=== PATIENT | male | born 1950 | race Two or more races ===

== ENCOUNTER 2017-07-03 17:11 | Inpatient (IN) | payer MEDICARE, OTHER ==
[~2017-07-03] VITALS: Ht 160 cm; Wt 93.0 kg
--- NOTE | 2017-07-03 18:55 | NUR ---
admission notes: received report from misael rn, pt just came direct admit from [facility], pt a/o x4, denies any chest pain or discomfort at this time, pt ambulatory, with right ac iv access, patent and flushing well, on hl. placed on tele, currently on sinus shannan 45, vs taken and recorded, oriented pt to unit policy and hourly rounding, inventory of belonging completed. safety precautions for fall initiated call light in reach, will continue to monitor
[2017-07-03] MEDS ORDERED: ASPI81TA2 PO (19:40)
[2017-07-03] MEDS ORDERED: ESOM40CA PO (19:40)
[2017-07-03] MEDS ORDERED: ATEN100T PO (19:40)
--- NOTE | 2017-07-03 19:45 | NUR ---
rn notes: arti [facility] inpatient services rn came to see the pt, did h&p, talked to the family of the pt regarding plan of care, orders noted and carried out
--- NOTE | 2017-07-03 19:50 | NUR ---
rn notes: informed motion picture projectionist lehr cutter about pt's lab from [place], plt 126, trop positive 0.14, cd imaging in the chart, ekg result, also made aware of pt's sinus shannan 45, per lehr cutter okay "continue monitoring hr", pt taking atenolol 100mg daily. also lehr cutter made aware of medication pt received in [place] [facility] including 162mg of aspirin aside from aspirin the pt taken at home, flu vaccine given in [place] today, lovenox 90mg given.
[2017-07-03 20:00] VITALS: BP 154/84
[2017-07-03] MEDS ORDERED: MAG HYDROX/AL HYDROX/SIMETH 30 ML UDC PO PRN (20:00)
[2017-07-03] MEDS ORDERED: MORPHINE SULFATE INJ 2 MG/ML DISP.SYRIN IV PRN (20:00)
[2017-07-03] MEDS ORDERED: MAGNESIUM HYDROXIDE 30 ML UDC PO PRN (20:00)
[2017-07-03] MEDS ORDERED: ONDANSETRON HCL/PF 4 MG/2 ML VIAL IVP PRN (20:00)
[2017-07-03] MEDS ORDERED: HYDROCODONE/APAP 5/325MG 1 EACH TABLET PO PRN (20:00)
[2017-07-03 20:15] VITALS: BP 141/79
--- NOTE | 2017-07-03 20:30 | NUR ---
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
[2017-07-03] MEDS ORDERED: ACETAMINOPHEN 325 MG TABLET ONE (20:48)
[2017-07-03] MEDS: ACETAMINOPHEN 325 MG TABLET PO PRN (20:51)
--- NOTE | 2017-07-03 20:51 | NUR ---
prn tylenol: pt c/o head ache 11/06 requesting for tylenol, prn tylenol 650mg tab po administered at this time
[2017-07-04] VITALS: BP 153/86
--- NOTE | 2017-07-04 | NUR ---
rn notes: noted trop result 0.233, no call receive from lab, rn just saw it on lab result, field automobile adjuster aware of positive troponin, already contacted dr marsh for cardio consult and will have echo in am, pt denies any chest pressure at this time, vs stable, on sinus shannan hr 43
[2017-07-04 04:00] VITALS: BP_SYST 124; BP_SYST 125; BP_DIAS 62; BP_DIAS 70
--- NOTE | 2017-07-04 06:49 | NUR ---
RN CLOSING NOTES: PT IN BED, AWAKE, DENIES ANY CHEST PAIN OR DISCOMFORT AT THIS TIME, PT AMBULATORY, WITH RIGHT IV ACCESS, PATENT AND FLUSHING WELL, ON HL. PT TELE MONITORED SINUS ROSEMARY HR 48. VS REMAIN STABLE, NEEDS ATTENDED. SAFETY PRECAUTIONS FOR FALL REMAINS ENGAGED, CALL LIGHT WITHIN REACH, WILL ENDORSE TO DAY RN FOR OLGA LIDIA.
[2017-07-04 06:57] LABS: BASOPHILS % (AUTO) 0.6 % (0.0-2.0); EOSINOPHILS # (AUTO) 0.1 /CMM (0.0-0.7); EOSINOPHILS % (AUTO) 2.9 % (0.0-6.0); HEMATOCRIT 47 % (39-51); HEMOGLOBIN 16.3 g/dL (13.5-17.5); LYMPHOCYTES # (AUTO) 1.2 /CMM (0.8-4.8); LYMPHOCYTES % (AUTO) 26.6 % (20.0-44.0); MEAN CORPUSCULAR HEMOGLOBIN 31 PG (26.0-33.0); MEAN CORPUSCULAR HGB CONC 35 g/dl (31.0-36.0); MEAN CORPUSCULAR VOLUME 89 fL (80-96); MONOCYTES # (AUTO) 0.5 /CMM (0.1-1.30); MONOCYTES % (AUTO) 11.6 % (2.0-12.0); NEUTROPHILS # (AUTO) 2.6 /CMM (1.8-8.9); NEUTROPHILS % (AUTO) 58.3 % (43.0-81.0); PLATELET COUNT (AUTO) 119 /CMM (150-450); RDW COEFFICIENT OF VARIATION 13.6 (11.5-15.0); RED BLOOD CELL COUNT(AUTO) 5.27 MIL/uL (4.5-6.0); WHITE BLOOD COUNT (AUTO) 4.5 K/uL (4.3-11.0)
[2017-07-04 07:11] LABS: CALCIUM, SERUM 8.8 mg/dL (8.5-10.1); CREATININE 0.8 mg/dL (0.6-1.3); MAGNESIUM 1.8 mg/dL (1.8-2.4); PHOSPHORUS 3.7 mg/dL (2.5-4.9); POTASSIUM 4.1 mmol/L (3.5-5.1)
[2017-07-04 07:14] LABS: TROPONIN I 0.227 ng/mL (0.00-0.056)
[2017-07-04 07:21] LABS: THYROID STIMULATING HORMONE 2.868 uIU/mL (0.358-3.74)
--- NOTE | 2017-07-04 07:55 | NUR ---
RN OPENING NOTES PT RESTING COMFORTABLY IN BED WITH EYES OPEN. AOX4. FAMILY AT THE BED SIDE. DENIES CP, SOB AND ANY TYPE OF PAIN AT THIS TIME. IV ACCESS ON THE RIGHT AC 20G. PATENT AND INTACT. RESPIRATIONS EVEN AND UNLABORED. NO ACUTE DISTRESS NOTED. BED LOCKED IN THE LOWEST POSITION WITH SIDERAILS UP X2. CALL LIGHT WITHIN REACH. WILL CONTINUE TO MONITOR, ASSESS AND EDUCATE PATIENT THROUGHOUT SHIFT.
[2017-07-04 08:00] VITALS: BP 122/71
[2017-07-04] MEDS ORDERED: ATORVASTATIN 40 MG TABLET PO SCH (08:30)
[2017-07-04] MEDS: ATENOLOL 50 MG TABLET PO SCH (09:00)
[2017-07-04] MEDS: ASPIRIN 81 MG TAB.CHEW PO SCH (09:06)
[2017-07-04] MEDS: FAMOTIDINE (20 MG) 20 MG TABLET PO SCH (09:06)
[2017-07-04] MEDS: ENOXAPARIN SODIUM 100 MG/ML DISP.SYRIN SQ SCH ×2 (09:06→21:06)
--- NOTE | 2017-07-04 09:08 | NUR ---
RN NON ADMIN NOTES ATENOLOL HELD. PATIENT BP 122/71 HR 55. WILL CONTINUE TO MONITOR.
[2017-07-04] MEDS: ISOSORBIDE MONONITRATE (30MG) 30 MG TAB.SR.24H PO SCH (11:30)
[2017-07-04 12:00] VITALS: BP 106/54
--- NOTE | 2017-07-04 12:01 | NUR ---
RN NON ADMIN NOTES BP 106/54 HR 61. HELD IMDUR. WILL CAUSE HYPOTENSION. WILL CONTINUE TO MONITOR.
[2017-07-04 16:00] VITALS: BP 123/84
--- NOTE | 2017-07-04 17:35 | NUR ---
RN NOTES PATIENT FAMILY REFUSING FOR CATH TO BE DONE BY DR. GERBER ON WEDNESDAY AT 4PM AT [facility]. REQUESTING TO BE TRANSFERRED TO [facility]. NOTIFIED DR. RIOS AND ZABRINA. CASE MANAGEMENT AWARE. WILL AWAIT PLACEMENT. BACK HOE MACHINE OPERATOR GARLAND SPOKE WITH FAMILY. CFAMILY VERBALIZED UNDERSTANDING OF TRANSFERE PROCESS. BACK HOE MACHINE OPERATOR HAYDER TO F/U TOMORROW.
--- NOTE | 2017-07-04 19:29 | NUR ---
RN CLOSING NOTES PT RESTING COMFORTABLY IN BED WITH EYES OPEN. AOX4. DENIES CP, SOB AND ANY TYPE OF PAIN AT THIS TIME. IV ACCESS ON THE RIGHT AC 20G. PATENT AND INTACT. ALL MEDS GIVEN. ALL NEEDS MET. BED LOCKED IN THE LOWEST POSITION WITH SIDERAILS UP X2. CALL LIGHT WITHIN REACH. WILL ENDORSE TO NIGHT RN FOR OLGA LIDIA.
--- NOTE | 2017-07-04 19:30 | NUR ---
DEVELOPMENT MANAGER OPENING NOTES: PATIENT IN BED, AOX4, ON ROOM AIR, BREATHING EVEN AND UNLABORED. APPEARS CALM AND IN NO DISTRESS. DENIES PAIN/ CHEST PAIN OR SOB AT THIS TIME. PIV OVER RAC G20 INTACT AND PATENT TO FLUSH. ON TELE MONITORING : SR RATE OF 61. PROVIDED FOR COMFORT AND SAFETY. BED IN LOWEST AND LOCKED POSITION, CALL LIGHT WITHIN REACH. WILL CONT TO MONITOR.
[2017-07-04 20:00] VITALS: BP 129/81
[2017-07-04] MEDS ORDERED: ZOLPIDEM TARTRATE 5 MG TABLET PO PRN (21:00)
[2017-07-04] MEDS ORDERED: ZOLPIDEM TARTRATE 5 MG TABLET ONE (22:30)
[2017-07-04] MEDS: ATORVASTATIN 40 MG TABLET PO SCH (22:31)
[2017-07-05] VITALS (7 sets, daily range): BP systolic 97–134; BP diastolic 63–84
--- NOTE | 2017-07-05 06:42 | NUR ---
LICENSED PHYSICAL THERAPIST CLOSING NOTES: PATIENT IN BED, AOX4, ON ROOM AIR, BREATHING EVEN AND UNLABORED. APPEARS CALM AND IN NO DISTRESS, DENIES PAIN. ON TELE MONITORING: SR60S TO SINUS ROSEMARY AT HIGH 50S. PIV OVER RAC G20 INTACT AND PATENT TO FLUSH. DUE MEDS GIVEN. PROVIDED FOR COMFORT AND SAFETY. BED IN LOWEST AND LOCKED POSITION, SIDERAILS UPX2. WILL ENDORSE TO AM RN FOR OLGA LIDIA.
--- NOTE | 2017-07-05 07:30 | NUR ---
CARDIAC/VASCULAR SONOGRAPHER NOTES PT IN BED, AWAKE, ALERT AND ORIENTED, NO COMPLAINT OF PAIN OR ANY DISCOMFORT, BREATHING PATTERN NORMAL, CALL LIGHT WITHIN, KEPT COLOR RECEIVER BED.
[2017-07-05] MEDS: ATENOLOL 50 MG TABLET PO SCH (08:23)
[2017-07-05] MEDS: ASPIRIN 81 MG TAB.CHEW PO SCH (08:23)
[2017-07-05] MEDS: FAMOTIDINE (20 MG) 20 MG TABLET PO SCH (08:23)
[2017-07-05] MEDS: ISOSORBIDE MONONITRATE (30MG) 30 MG TAB.SR.24H PO SCH (08:24)
[2017-07-05] MEDS: ENOXAPARIN SODIUM 100 MG/ML DISP.SYRIN SQ SCH (08:28)
--- NOTE | 2017-07-05 12:00 | NUR ---
MIXER OPERATOR HOT METAL NOTES PT IN BED, AWAKE, ALERT AND ORIENTED, NO COMPLAINT OF PAIN OR ANY DISCOMFORT, SEEN BY KAREN KELLY, PLAN OF CARE DISCUSSED WITH PT, VERBALIZED UNDERSTANDING, CALL LIGHT WITHIN REACH.
[2017-07-05] MEDS: ACETAMINOPHEN 325 MG TABLET PO PRN ×2 (15:07→21:27)
--- NOTE | 2017-07-05 18:38 | NUR ---
RN CLOSING NOTES RESIDENT IN BED, ASLEEP BUT CAN BE EASILY AWOKEN. ALERT, ORIENTED, ABLE TO MAKE NEEDS KNOWN. ALL DUE MEDICATION GIVEN. ADMINISTERED PRN TYLENOL WITHIN IN THE SHIFT FOR C/O HEADACHE, EFFECTIVE. PATIENT COMFORTABLE, WITH NO COMPLAINT OF PAIN AT THIS TIME, BREATHING EVEN AND UNLABORED. KEPT PATIENT CLEAN AND DRY. PLACED CALL LIGHT WITHIN EASY REACH.
--- NOTE | 2017-07-05 19:15 | NUR ---
TELE/RN NOTES RECEIVED PT. LYING IN BED. AWAKE, ALERT AND ORIENTED X4. BREATHING EVEN AND UNLABORED ON ROOM AIR. NO SOB, RESPIRATORY DISTRESS OR COMPLAINTS OF PAIN NOTED AT THIS TIME. NO COMPLAINTS OF CHEST PAIN NOTED AT THIS TIME. PT. WITH EXTERNAL DEVELOPMENT TECHNICIAN PRESENT AND INTACT CURRENT RHYTHM = SINUS ROSEMARY HR 54. PT. WITH RIGHT AC 20 GAUGE IV SALINE LOCK PRESENT, PATENT AND INTACT. PER DAYSHIFT NURSE PT. IS TO BE NPO AT MIDNIGHT PT. WILL BE GOING FOR CARDIAC CATHETERIZATION TOMORROW AT [facility]. BED LOCKED AND IN LOWEST POSITION, SIDE RAILS UP X2, CALL LIGHT WITHIN REACH, WILL CONTINUE TO MONITOR.
[2017-07-05] MEDS: ATORVASTATIN 40 MG TABLET PO SCH (21:26)
[2017-07-06 00:53] VITALS: BP 114/75
[2017-07-06 04:08] VITALS: BP 116/72
--- NOTE | 2017-07-06 06:45 | NUR ---
TELE/RN NOTES PT. IS LYING IN BED RESTING. BREATHING EVEN AND UNLABORED ON ROOM AIR. NO SOB, RESPIRATORY DISTRESS OR COMPLAINTS OF PAIN NOTED AT THIS TIME. NO COMPLAINTS OF CHEST PAIN NOTED AT THIS TIME AND THROUGHOUT SHIFT. PT. WITH RIGHT AC 20 GAUGE IV SALINE LOCK PRESENT, PATENT AND INTACT. PT. HAS BEEN NPO SINCE MIDNIGHT, PT. WILL BE GOING FOR CARDIAC CATHETERIZATION TODAY AT [facility]. ALL PT. NEEDS MET. BED LOCKED AND IN LOWEST POSITION, SIDE RAILS UP X2, CALL LIGHT WITHIN REACH, WILL ENDORSE TO DAYSHIFT NURSE FOR CONTINUITY OF CARE.
[2017-07-06 07:05] VITALS: BP 119/77
[2017-07-06 07:40] LABS: BASOPHILS % (AUTO) 0.5 % (0.0-2.0); EOSINOPHILS # (AUTO) 0.1 /CMM (0.0-0.7); EOSINOPHILS % (AUTO) 2.3 % (0.0-6.0); HEMATOCRIT 49 % (39-51); HEMOGLOBIN 16.7 g/dL (13.5-17.5); LYMPHOCYTES # (AUTO) 1.1 /CMM (0.8-4.8); LYMPHOCYTES % (AUTO) 20.6 % (20.0-44.0); MEAN CORPUSCULAR HEMOGLOBIN 31 PG (26.0-33.0); MEAN CORPUSCULAR HGB CONC 34 g/dl (31.0-36.0); MEAN CORPUSCULAR VOLUME 89 fL (80-96); MONOCYTES # (AUTO) 0.6 /CMM (0.1-1.30); MONOCYTES % (AUTO) 10.8 % (2.0-12.0); NEUTROPHILS # (AUTO) 3.6 /CMM (1.8-8.9); NEUTROPHILS % (AUTO) 65.8 % (43.0-81.0); PLATELET COUNT (AUTO) 121 /CMM (150-450); RDW COEFFICIENT OF VARIATION 13.4 (11.5-15.0); RED BLOOD CELL COUNT(AUTO) 5.45 MIL/uL (4.5-6.0); WHITE BLOOD COUNT (AUTO) 5.4 K/uL (4.3-11.0)
--- NOTE | 2017-07-06 07:40 | NUR ---
PUBLIC HEALTH POLICY ANALYST NOTE RECEIVED SBAR REPORT AT THE BEDSIDE. PATIENT IS A/O X3, AWAKE AND RESPONSIVE. DENIES PAIN/DISCOMFORT AT THIS TIME. PATIENT IS IN BED, BED IS LOCKED IN THE LOWEST POSITION, SIDE RAILS UP X2. CALL LIGHT WITHIN REACH. PATIENT EDUCATED TO USE THE CALL LIGHT TO CALL FOR ASSISTANCE. PATIENT EDUCATED ON UPCOMING TRANSFER TO [facility] BLUE LINE OPERATOR. VERBALIZED UNDERSTANDING. WILL CONTINUE TO MONITOR/ REASSESS AND PROVIDE WITH DISCHARGE EDUCATION/ PAPERWORK.
[2017-07-06 07:58] LABS: CREATININE 0.9 mg/dL (0.6-1.3); POTASSIUM 4.4 mmol/L (3.5-5.1)
[2017-07-06 08:00] VITALS: BP 119/77
[2017-07-06] MEDS: ASPIRIN 81 MG TAB.CHEW PO SCH (09:08)
[2017-07-06] MEDS: ATENOLOL 50 MG TABLET PO SCH (09:09)
[2017-07-06 09:10] VITALS: BP 119/77
[2017-07-06] MEDS: FAMOTIDINE (20 MG) 20 MG TABLET PO SCH (09:10)
[2017-07-06] MEDS: ISOSORBIDE MONONITRATE (30MG) 30 MG TAB.SR.24H PO SCH (09:10)
--- NOTE | 2017-07-06 09:12 | NUR ---
COAT PADDER NOTE COMPUTER SCANNER IS NOT WORKING. CHARTED MANUALLY. 6 RISHTS OF MEDICATIONS COMPLETED. ALL MEDICATIONS/DOSES VERIFIED.
--- NOTE | 2017-07-06 09:19 | NUR ---
MOTOR VEHICLE ESCORT DRIVER NOTE DISCHARGE INSTRUCTIONS PROVIDED. PATIENT/ AT THE BEDSIDE VERBALIZED UNDERSTANDING. ALL BELONGING ACCOUNTED FOR. PICTURE TAKEN AND PLACED IN THE CHART.
--- NOTE | 2017-07-06 10:48 | NUR ---
CONCRETE WORKER NOTE PATIENT IS LEAVING THE UNIT IN STABLE CONDITION ACCOMPANIED BY AMBULANCE. DISCHARGE EDUCATION PROVIDED. PAPERWORK GIVEN TO AMBULANCE STAFF. IV IS FLUSHED. IV INTACT/PATENT. REPORT GIVEN TO AMBULANCE STAFF RABIA. PATIENT LEFT VIA GURNEY GOING TO [facility] CARDIAC CATH LAB TECHNOLOGIST. ALL BELONGINGS ACCOUNTED FOR.
--- NOTE | 2017-07-06 11:00 | NUR ---
PAPER PROCESSING MACHINE HELPER NOTE TELEPHONE REPORT GIVEN TO [facility] NURSE MOISÉS.
--- NOTE | 2017-07-06 17:35 | NUR ---
PIN SETTER NOTE CHARGE NURSE VICTOR HUGO RECEIVED A PHONE CALL FROM [facility] STATING THE PATIENT IS NOT COMING BACK TO THE [facility]. PATIENT'S SHOES FOUND UNDER THE BED. CALLED THE , [facility] AND NOTIFIED HER THAT SHE SHOES ARE PLACED IN A BELONGINGS BAG WITH A PATIENT'S LABEL ON IN THE UTILITY ROOM. THE STATED SHE WILL COME TOMORROW TO PICK THE SHIES UP.
== END 2017-07-06 10:55 | disposition short-term general hospital (02) | DRG 281 ==
LOC: TELE 18:45
PROVIDERS: ADMIT Internal Medicine; ATTEND Internal Medicine
DX: I21.4 Non-ST elevation (NSTEMI) myocardial infarction (principal); I50.32 Chronic diastolic (congestive) heart failure; E66.01 Morbid (severe) obesity due to excess calories; E88.81 Metabolic syndrome and other insulin resistance; I11.0 Hypertensive heart disease with heart failure; I25.2 Old myocardial infarction; Z68.36 Body mass index [BMI] 36.0-36.9, adult; E78.5 Hyperlipidemia, unspecified; F17.290 Nicotine dependence, other tobacco product, uncomplicated; K21.9 Gastro-esophageal reflux disease without esophagitis; Z90.49 Acquired absence of other specified parts of digestive tract; Z92.21 Personal history of antineoplastic chemotherapy; Z85.79 Personal history of other malignant neoplasms of lymphoid, hematopoietic and related tissues; R73.9 Hyperglycemia, unspecified; Z98.61 Coronary angioplasty status; I25.119 Atherosclerotic heart disease of native coronary artery with unspecified angina pectoris
CPT/HCPCS: 36415; 80048-TC; 80061-TC; 83735-TC; 84100-TC; 84443-TC; 84484-TC; 85025-TC; 87081-TC; 93307-TC; J1650; Z7610